=== PATIENT | female | born 1970 | race Caucasian/White ===

== ENCOUNTER 2020-08-22 18:41 | Observation (INO) | payer OTHER ==
[~2020-08-22] VITALS: Ht 162.6 cm; Wt 72.6 kg
[2020-08-22 19:20] LABS: HEMOGLOBIN 14.7 gm/dl (12.3-15.3); RED BLOOD COUNT 4.77 M/UL (4.00-5.10); WHITE BLOOD COUNT 9.3 K/UL (4.5-11.0)
[2020-08-22 19:29] LABS: BUN/CREATININE RATIO 15 (0-10)
[2020-08-23] MEDS ORDERED: PROGESTERONE200 MG PO (04:32)
[2020-08-23] MEDS ORDERED: PROTONIX40 MG PO (11:15)
[2020-08-23] MEDS ORDERED: ECOTRIN81 MG PO (11:15)
[2020-08-24 09:16] LABS: HBSAG SCREEN Negative (Negative); HEP A AB, IGM Negative (Negative); HEP B CORE AB, IGM Negative (Negative); HEP C VIRUS AB <0.1 (0.0-0.9)
== END 2020-08-23 12:33 | disposition home or self-care (01) ==
LOC: ER1 18:41 → M/S 22:34 → CDU 22:34 → M/S 08-23 00:05
PROVIDERS: Internal Medicine; Physician Assistant; ADMIT Internal Medicine
DX: R07.89 Other chest pain (principal); I44.7 Left bundle-branch block, unspecified; R94.5 Abnormal results of liver function studies; R94.4 Abnormal results of kidney function studies; N95.9 Unspecified menopausal and perimenopausal disorder; Z20.822 Contact with and (suspected) exposure to COVID-19; Z90.49 Acquired absence of other specified parts of digestive tract; Z79.890 Hormone replacement therapy; Z98.890 Other specified postprocedural states
CPT/HCPCS: ECHO; 36415; 71045; 76705; 80053; 80061; 80074; 82550; 82553; 83036; 83690; 83874; 84439; 84443; 84484; 84550; 85025; 85730; 93005; 93306; 96374; 99285; G0378; J1644; J2270; U0002